=== PATIENT | female | born 1950 | race Caucasian/White ===

== ENCOUNTER → 2021-04-26 15:32 | Outpatient (CLI) | payer BC, SELFPAY ==
--- NOTE | 2021-04-26 | EMB_PTH ---
PATIENT: TEENA GUDINO [facility] U#:[id number] AGE/SX: 75/F ROOM: RE04/26/[address]: Dr. Herminio Hyde MD : 1950 BED: DIS: SPEC #: [id number] RECD: 04/26/21 16:01 STATUS: LAZ VICTORIA #: [id number] BLU: 04/26/21 00:[address]: Herminio Hyde DEPT: SURGICAL PATHOLOGY RECD BY: Elfego Plata ENTERED: 04/29/21 08:05 SP TYPE: ENDOM BX/C SAM DR: Julia Lutz, K 9 POLICE OFFICER-C Tissues: Endometrium, NOS Procedures: Special Stain Group II Mucicarmine Stain (control) Surgery Specimen Level IV HEADER OPERATION: Endometrial biopsy PRE-OP DIAGNOSIS: N95 TISSUE SUBMITTED: Endometrial biopsy MICROSCOPIC DIAGNOSIS Endometrial biopsy: Endometrial adenocarcinoma, endometrioid type, FIGO grade 2, with focal area of mucinous differentiation, endocervical type. See comment. SERGE:errol 04/30/2021 COMMENT Immunohistochemistry ([id number]) supports the above diagnosis. Mucin stain with matched control is used in the evaluation of the specimen. Immunohistochemistry for mismatched repair of protein, microsatellite instability ([id number]) will be performed and results will be reported separately. Case has been reviewed in consultation with Dr. Pascual who concurs with the above diagnosis. IDC:AM MICROSCOPIC DESCRIPTION Slides are reviewed. GROSS DESCRIPTION Received in fixative is one container labeled with the patient's name and designated EM biopsy. The specimen consists of multiple fragments of hemorrhagic soft tissue mixed with ponce mucoid tissue that in aggregate measure 3 x 2.5 x 0.3 cm. The specimen is totally submitted in one cassette. / SERGE:errol 04/29/21 TC:0 CPT: 50773, 80827
--- NOTE | 2021-04-26 | IMM_PTH ---
PATIENT: TEENA GUDINO LOC: [facility] U#:[id number] AGE/SX: 75/F ROOM: RE04/26/[address]: Dr. Herminio Hyde MD : 1950 BED: DIS: SPEC #: [id number] RECD: 04/30/21 13:24 STATUS: LAZ REQ #: [id number] BLU: 04/26/21 00:[address]: Herminio Hyde DEPT: IMMUNOHISTOCHEMISTRY RECD BY: Mi Luke ENTERED: 04/30/21 13:26 SP TYPE: IMMUNO OTHR DR: Julia Lutz, SENIOR PATROL AGENT-C Tissues: Endometrium, NOS Procedures: MSH2 (add) MLH-1 (add) MSH6 (add) Anti-PMS2 (add) CA-125 (add) CEA (add) CK20 (add) CK5-6 (add) CK7 (add) CK8 (add) HER2 KIM (add) KI-67 (add) P53 (add) NH (add) Vimentin (add) Pankeratin (add) P40 (add) ER (initial) PHYSICIAN & INSTITUTION [address] [address] SPECIMEN INFORMATION: Tissue Source: Endometrial biopsy Clinical Info: [facility] Specimen Number: [id number] CPT code: 91467, 24905 x17 METHODOLOGY: Deparaffinized sections of prefer/formalin-fixed tissue or PAP/DQ stained slides are incubated with monoclonal/polyclonal antibodies/oligonucleotide probes. Localization is made via biotin free immunoperoxidase method. Appropriate controls are performed and reacted as expected. Results on target cell population are indicated in the following table: RESULTS: ANTIBODY / CLONE RESULT ER (6F11) positive NH (1E2) positive Her-2neu (CB11) negative (0) AE1-3 (AE1/AE3/PCK26) positive CK7 (OV-TL12/30) positive CK8 (59rvgcC44) positive CK20 (KS20.8) negative Vimentin (V9) positive CK5-6 (D5 & 1684) negative P40 (BC28) negative CEA (11-7/TF-3HB-1) positive, focal CA125 (OC125) positive MLH1 (M1) positive MSH2 (25D12) positive MSH6 (44) positive PMS2 (TUJ0782) positive P53 (DO-7) positive, weak and focal Ki-67 (30-9) positive, low These tests were developed and their performance characteristics determined by [facility]. They may not have been cleared or approved by the [place]. Food and Drug Administration. The FDA has determined that such clearance or approval is not necessary. The above immunohistochemical/dualISH markers are ordered and reviewed by the Pathologist. INTERPRETATION: Endometrial biopsy: Consistent with endometrial adenocarcinoma with focal area of mucinous differentiation, endocervical type. Result of Microsatellite Instability Study: Negative (no loss of mismatch protein; no microsatellite instability detected). This case has been reviewed in consultation with Dr. Pascual who concurs with the above diagnosis. SJ:errol 05/01/2021
[2021-05-01 13:48] LABS: HPV Reflexed? NOT INDICATED
== END ==
PROVIDERS: PCP Nurse Practitioner Family; Visit Provider Obstetrics & Gynecology
DX: Z12.4 Encounter for screening for malignant neoplasm of cervix (principal)
CPT/HCPCS: 88175; 88305; 88313; 88341; 88342; G0145

== ENCOUNTER → 2021-05-17 15:26 | Outpatient (CLI) | payer MEDICARE, SELFPAY ==
--- NOTE | 2021-05-17 15:36 | CT_ITS ---
HISTORY: Endometrial cancer. TECHNIQUE: Helically acquired images were obtained of the chest, abdomen, and pelvis. A radiation dose optimization technique was used for this scan. Contrast: 100 mL Isovue 300 IV/Readi-CAT p.o. # of images incl. paperwork: [id number]. COMPARISON: None. FINDINGS: ----Chest: CENTRAL AIRWAYS: Patent. LUNGS: Minimal lower lobe scarring. PLEURA: No pleural effusion or pneumothorax. AORTA: No aortic aneurysm or dissection flap. Mild atherosclerosis. HEART/PERICARDIUM: Heart within normal limits in size. No significant pericardial effusion. MEDIASTINUM/LIGIA: No enlarged lymph nodes. OSSEOUS STRUCTURES: Mild scoliosis and degenerative change. Cervical spinal fusion hardware. No osteoblastic or osteolytic lesion. ----Abdomen/Pelvis: BOWEL: Gastric bypass. Bowel including appendix nondilated. No pericolonic inflammation. PERITONEUM: No pathologically enlarged lymph nodes or significant ascites. LIVER/BILIARY TRACT: 8 mm cyst in the left hepatic lobe. Cholecystectomy. SPLEEN/PANCREAS: Homogeneous. KIDNEYS: Tiny right renal cystic lesion. No hydronephrosis. ADRENAL GLANDS: No nodules. AORTA: No abdominal aortic aneurysm. Mild atherosclerosis. PELVIS: 1.3 cm right ovarian cyst. No enlarged lymph nodes. OSSEOUS STRUCTURES: Mild scoliosis and degenerative change. Small sclerotic foci in the pelvis and hips, likely bone islands. CT/CT Chest, Abd, Pel w/Contrast IMPRESSION: No evidence for metastatic disease in the chest. No evidence for metastatic disease in the abdomen. Small left hepatic and right renal cystic lesions. Cholecystectomy. Gastric bypass. Small right ovarian cyst. Individualized dose optimization techniques were used for this CT. at 0817 Reported and signed by: Liz Santamaria MD Electronically Signed: Liz Santamaria MD at 8:16 EDT Tel , Service support ,
[2021-05-21 07:47] LABS: CREATININE FINGERSTICK 0.48 mg/dL (0.55-1.02); EGFR FINGERSTICK > 60 mL/min (>60)
== END ==
PROVIDERS: PCP Student in an Organized Health Care Education/Training Program
DX: C54.1 Malignant neoplasm of endometrium (principal)
CPT/HCPCS: 71260; 74177; Q9967